=== PATIENT | female | born 1950 | race Caucasian/White ===

== ENCOUNTER → 2024-11-25 09:52 | Outpatient (REF) | payer MEDICARE, OTHER, SELFPAY ==
[2024-11-25 10:47] LABS: Hematocrit 41.2 % (37.0-47.0); Hemoglobin 13.3 g/dL (12.0-16.0); Mean Corp Hgb Conc. 32.3 g/dL (33.0-37.0); Mean Corpuscular Hgb 29.4 pg (27.0-31.0); Mean Corpuscular Volume 91.2 fL (81.0-99.0); Mean Platelet Volume 10.8 fL (7.4-10.4); Platelet Count 167 10^3/uL (130-400); Red Blood Cell Count 4.52 10^6/uL (4.20-5.40); Red Cell Dist. Width 12.7 % (11.5-14.5); White Blood Cell Count 77.2 10^3/uL (4.8-10.8)
[2024-11-25 11:32] LABS: % Immature Granulocytes 0.2 % (0-0.5); % Lymphocytes 92.2 % (20.5-51.1); % Monocytes 0.6 % (1.7-9.3); Absolute Immature Granulocytes 0.1 10^3/uL (0-0.05); Absolute Lymphocytes 71.1 10^3/uL (1.2-3.4); Absolute Monocytes 0.5 10^3/uL (0.1-0.6); Absolute Neutrophils 5.4 10^3/uL (1.4-6.5); Nucleated Red Blood Cells % 0 %
[2024-11-25 11:40] LABS: ALT (SGPT) 24 U/L (0-35); AST (SGOT) 27 U/L (14-36); Alkaline Phosphatase 94 U/L (38-126); Blood Urea Nitrogen 14 mg/dl (7-17); Calcium 9.7 mg/dl (8.4-10.2); Carbon Dioxide 27 mmol/L (22-30); Chloride 105 mmol/L (98-107); Glucose 115 mg/dl (70-99); HDL Cholesterol 45 mg/dl; LDL Cholesterol, Calculated 140 mg/dl; Potassium 4.2 mmol/L (3.5-5.1); Sodium 141 mmol/L (135-145); Total Cholesterol 211 mg/dl (50-199); Total Protein 6.9 g/dl (6.3-8.2); Triglyceride 131 mg/dl (10-149); Very Low Density Lipoprotein 26 mg/dl (0-30); eGFR > 60.00
[2024-11-25 11:47] LABS: Albumin 4.8 g/dl (3.5-5.0)
[2024-11-25 12:07] LABS: TSH Reflex To Free T4 1.81 uIU/ml (0.47-4.68)
[2024-11-25 13:19] LABS: Glycohemoglobin (HgbA1c) 5.5 % (4.0-5.6)
== END ==
LOC: REG 09:52
PROVIDERS: ATTENDING PHYSICIAN Nurse Practitioner Adult Health
DX: E03.9 Hypothyroidism, unspecified (principal); E78.2 Mixed hyperlipidemia; R42 Dizziness and giddiness; F51.04 Psychophysiologic insomnia; C91.10 Chronic lymphocytic leukemia of B-cell type not having achieved remission; G20.B1 Parkinson's disease with dyskinesia, without mention of fluctuations; R73.01 Impaired fasting glucose
CPT/HCPCS: 36415; 80053; 80061; 83036; 84443; 85025

== ENCOUNTER → 2025-05-28 10:26 | Outpatient (REF) | payer MEDICARE, OTHER, SELFPAY | LOC: RAD 10:26 | PROVIDERS: ATTENDING PHYSICIAN Nurse Practitioner Adult Health | DX: M54.50 Low back pain, unspecified (principal); Z96.641 Presence of right artificial hip joint | CPT/HCPCS: 72110; 73502 ==